=== PATIENT | female | born 1990 | race Two or more races ===

== ENCOUNTER 2022-08-06 17:35 | Inpatient (IN) | payer MEDICAID, OTHER ==
[~2022-08-06] VITALS: Ht 162.6 cm; Wt 79.8 kg
[2022-08-06] MEDS ORDERED: DERMOPLAST 60ML BOTTLE TOP PRN (19:15)
[2022-08-06] MEDS ORDERED: LIDOCAINE 2%HCL (LOCAL ANESTH.) INJ 20ML MDV IJ PRN (19:15)
[2022-08-06] MEDS ORDERED: BUTORPHANOL TARTRATE 2 MG/1 ML VIAL IV PRN ×2 (19:15)
[2022-08-06] MEDS ORDERED: PHISODERM TOP SOLN 240ML BTL TOP PRN (19:15)
[2022-08-06] MEDS ORDERED: PROMETHAZINE HCL 25 MG/ML 1ML IV PRN (19:15)
[2022-08-06] MEDS ORDERED: WITCH HAZEL-GLYCERIN PAD TOP PRN (19:15)
[2022-08-06] MEDS: ceFAZolin 1GM/50ML 50 ML IV SCH (20:10)
[2022-08-06 20:16] LABS: Hematocrit 32.9 % (36.0-46.0); Mean Corpuscular Hemoglobin 27.5 pg (28.0-32.0); Mean Corpuscular Hgb Conc. 33.4 g/dL (32.0-36.0); Mean Corpuscular Volume 82.3 fL (80.0-100.0); Red Cell Distribution Width 14.3 % (11.8-14.3); White Blood Cell 9.9 10^3/uL (4.4-10.8)
[2022-08-06 20:27] LABS: Urine Bacteria MOD /hpf (None Seen); Urine Blood 1+ /uL (Negative); Urine Mucus FEW (None Seen); Urine Specific Gravity 1.017 (1.001-1.035); Urine WBC 67 /hpf (0 - 5)
[2022-08-06 20:30] LABS: Basophils % (manual) 0 (0.0-2.0); Blast Cells 0; Promyelocytes % 0; Reactive Lymphocytes 0
[2022-08-06 20:35] LABS: INR 0.89 (0.9-1.15); Partial Thromboplastin Time 27.4 sec (24.6-33.4)
[2022-08-06 20:49] LABS: Albumin 2.5 g/dL (3.4-5.0); BUN/Creatinine Ratio 20.5; Calcium 8.3 mg/dL (8.5-10.1); Potassium 3.2 mmol/L (3.5-5.1)
[2022-08-06 20:50] LABS: Band Neutrophils % (manual) 4; Eosinophils % (manual) 1 (0-7); Lymphocytes % (manual) 15 (10.0-50.0); Metamyelocytes % 2; Monocytes % (manual) 6 (0-12); Myelocytes % 1
[2022-08-06 20:51] LABS: Bilirubin, Total 0.3 mg/dL (0.2-1.0); Total Protein 6.7 g/dL (6.4-8.2)
[2022-08-06 20:52] LABS: Alcohol, Urine < 3.0 mg/dL (0-10); Amphetamine Screen, Urine NEGATIVE (NEGATIVE); Barbiturate Scree,Urine NEGATIVE (NEGATIVE); Benzodiazephine Screen, Urine NEGATIVE (NEGATIVE); Cannabinoid Screen, Urine NEGATIVE (NEGATIVE); Cocaine Screen, Urine NEGATIVE (NEGATIVE); Opiate Scree,Urine NEGATIVE (NEGATIVE); Phencyclidine Screen, Urine NEGATIVE (NEGATIVE)
[2022-08-06] MEDS: LACTATED RINGER'S 1,000 ML IV SCH (21:26)
[2022-08-06] MEDS ORDERED: miSOPROStol 50 MCG per PRE-CUT 1/2 TAB PO PRN (21:30)
[2022-08-06] MEDS ORDERED: CARBOPROST TROMETHAMINE 250 MCG/1ML VIAL IM ONE (22:15)
[2022-08-06] MEDS ORDERED: miSOPROStol 100 mcg TAB SL PRN (22:15)
[2022-08-06] MEDS ORDERED: LACT. RINGERS/OXYTOCIN 20UNITS 500 ML IV ONE ×2 (22:15→22:45)
[2022-08-06] MEDS ORDERED: METHYLERGONOVINE MALEATE 0.2 MG/ML AMP IM ONE (22:15)
[2022-08-06] MEDS ORDERED: DIPHENOXYLATE W/ATROPINE 2.5 MG TAB PO PRN (22:15)
[2022-08-07] MEDS ORDERED: ONDANSETRON ODT 4 MG TAB PO PRN (00:45)
[2022-08-07] MEDS ORDERED: ACETAMINOPHEN 325 MG TAB PO PRN (00:45)
[2022-08-07] MEDS ORDERED: IBUPROFEN 800 MG TAB PO PRN (00:45)
[2022-08-07 03:07] VITALS: BP 109/55
[2022-08-07] MEDS: ceFAZolin 1GM/50ML 50 ML IV SCH (03:51)
[2022-08-07] MEDS: LACTATED RINGER'S 1,000 ML IV SCH (03:52)
[2022-08-07 06:47] VITALS: BP 109/56
[2022-08-07 11:12] VITALS: BP 110/59
[2022-08-07 15:59] VITALS: BP 112/61
[2022-08-07] MEDS: CEPHALEXIN 250 MG CAP PO SCH ×3 (17:53→22:09)
[2022-08-07] MEDS ORDERED: PREN27TA7 OR (18:48)
[2022-08-07 18:50] VITALS: BP 99/60
[2022-08-07] MEDS ORDERED: DOCUSATE SOD 100 MG CAP PO SCH (22:00)
[2022-08-07 22:01] VITALS: BP 101/55
[2022-08-08 03:30] VITALS: BP 92/50
[2022-08-08] MEDS: CEPHALEXIN 250 MG CAP PO SCH (05:33)
[2022-08-08 07:00] VITALS: BP 96/55
[2022-08-08 08:06] LABS: RPR Non Reactive (Non Reactive)
[2022-08-08 09:07] LABS: Rubella Antibodies, IgG 2.43 index (Immune >0.99)
[2022-08-08 11:07] VITALS: BP 108/69
== END 2022-08-08 12:30 | disposition home or self-care (01) | DRG 560 ==
LOC: LDRP 17:35 → OBSVTOIN 19:05
PROVIDERS: ADMIT Obstetrics & Gynecology; ATTEND Obstetrics & Gynecology
PROC: 10E0XZZ Delivery of Products of Conception, External Approach (ICD-10-PCS; principal; 2022-08-06)
DX: O42.02 Full-term premature rupture of membranes, onset of labor within 24 hours of rupture (principal); Z37.0 Single live birth; O69.81X0 Labor and delivery complicated by cord around neck, without compression, not applicable or unspecified; Z20.822 Contact with and (suspected) exposure to COVID-19; Z3A.39 39 weeks gestation of pregnancy; O80 Encounter for full-term uncomplicated delivery
CPT/HCPCS: 36415; 59025; 59409; 76805; 80053; 80307; 81001; 81002; 82948; 84112; 85007; 85027; 85610; 85730; 86592; 86703; 86762; 86850; 86900; 86901; 87340; 87426; 94760; 96360; 96361; 96365; 96374; G0378; J0690; J2590